=== PATIENT | male | born 1945 | race Caucasian/White ===

== ENCOUNTER 2023-12-08 17:58 | Emergency (ER) | payer OTHER ==
[~2023-12-08] VITALS: Ht 175.3 cm; Wt 72.3 kg
[2023-12-08 17:59] VITALS: BP 133/76; TEMP 97.3; O2SAT 97
[2023-12-08] MEDS: DERMABOND TOPICAL SKIN ADHESIVE TOP ONE (20:25)
== END 2023-12-08 21:15 | disposition home or self-care (01) ==
LOC: M ED 17:58
DX: S01.21XA Laceration without foreign body of nose, initial encounter (principal); R04.0 Epistaxis; W22.8XXA Striking against or struck by other objects, initial encounter; Y92.009 Unspecified place in unspecified non-institutional (private) residence as the place of occurrence of the external cause; Y93.9 Activity, unspecified; Y99.9 Unspecified external cause status